=== PATIENT | male | born 2000 | race Hispanic/Latino ===

== ENCOUNTER 2024-03-02 18:17 | Emergency (ER) | payer SELFPAY | END 2024-03-02 19:29 | disposition home or self-care (01) | LOC: BURERS 18:17 | DX: S61.212A Laceration without foreign body of right middle finger without damage to nail, initial encounter (principal); W26.8XXA Contact with other sharp object(s), not elsewhere classified, initial encounter; Y93.89 Activity, other specified | CPT/HCPCS: 12001; 99282 ==